=== PATIENT | male | born 1970 | race African-American/Black ===

== ENCOUNTER 2017-06-30 11:18 | Emergency (ER) | payer OTHER ==
--- NOTE | 2017-06-30 11:21 | ER Inpatient Procedure ---
VERONICA BARKER MD June 30, 2017 11:21
--- NOTE | 2017-06-30 11:22 | ER Report ---
History and Physical Time Seen By MD: 11:21 HPI/ROS CHIEF COMPLAINT: Abdominal pain HISTORY OF PRESENT ILLNESS: Patient is a 46-year-old male who is visiting from [facility] for a graduation. He is had to 3 days worth of epigastric abdominal pain similar to prior episodes of gastritis. Reports nausea without vomiting. Pain is fairly intense at 8 out of 10. There is no significant radiation of pain. He denies any fevers or chills. He denies any prior history of abdominal surgery. REVIEW OF SYSTEMS: Constitutional: No fever, no chills. Eyes: No discharge. ENT: No sore throat. Cardiovascular: No chest pain, no palpitations. Respiratory: No cough, no shortness of breath. Gastrointestinal: Abdominal pain mostly epigastric no nausea without vomiting Genitourinary: No hematuria. Musculoskeletal: No back pain. Skin: No rashes. Neurological: No headache. Allergies: Coded Allergies: No Known Drug Allergies (Unverified , 06/30/17) Home Meds Active Scripts Hydrocodone Bit/Acetaminophen (HYDROCODON-ACETAMINOPHEN 5-325) 1 Each Tablet, 1 EACH PO Q4H for PAIN, #9 TAB 0 Refills Prov:VERONICA BARKER MD 06/30/17 Ondansetron Hcl (ZOFRAN) 4 Mg Tablet, 4 MG PO Q8H for Nausea, #12 TAB 0 Refills Prov:VERONICA BARKER MD 06/30/17 Azithromycin (ZITHROMAX) 250 Mg Tablet, 1 TAB PO QDAY, #4 TAB 0 Refills first dose on July 01 Prov:VERONICA BAKRER MD 06/30/17 Reported Medications Sertraline Hcl (ZOLOFT) 50 Mg Tablet, 1 TAB PO QDAY, TAB 06/30/17 Zolpidem Tartrate (AMBIEN) 5 Mg Tablet, 1 TAB PO QHS, TAB 06/30/17 Past Medical/Surgical History Noncontributory towards this chief complaint Constitutional Vital Sign - Last 24 Hours 06/30/17 06/30/17 06/30/17 06/30/17 11:18 11:24 11:24 11:30 Temp 98.8 Pulse ??? 131 Resp 14 B/P (MAP) 162/106 (124) 162/106 160/102 (121) Pulse Ox 93 O2 Delivery Room Air 06/30/17 11:33 Pulse 121 Pulse Ox 97 Intake and Output 06/30/17 06/30/17 07/01/17 15:00 23:00 07:00 Intake Total 1000 ml Balance 1000 ml Physical Exam General Appearance: The patient is alert, has no immediate need for airway protection and no signs of toxicity. Pupils equal and round no pallor or injection. ENT, Mouth: Mucous membranes are moist. Respiratory: There are no retractions, lungs are clear to auscultation. Cardiovascular: Tachycardic with regular rhythm[ ] Gastrointestinal: Epigastric abdominal discomfort without or peritoneal signs Neurological: Awake and alert Skin: Warm and dry, no rashes. Musculoskeletal: Neck is supple non tender. Extremities are nontender, nonswollen and have full range of motion. Medical Decision Making Data Points Result Diagram: 06/30/17 1130 06/30/17 1130 Laboratory Hematology Test 06/30/17 11:30 06/30/17 11:34 Red Blood Count 5.79 M/uL (4.00-5.60) Mean Corpuscular Volume 83.5 fL (80.0-96.0) Mean Corpuscular Hemoglobin 28.8 pg (26.0-33.0) Mean Corpuscular Hemoglobin Concent 34.5 g/dL (32.0-36.0) Red Cell Distribution Width 14.1 % (11.5-14.5) Mean Platelet Volume 9.0 fL (7.2-11.1) Neutrophils (%) (Auto) 77.2 % (39.4-72.5) Lymphocytes (%) (Auto) 13.2 % (17.6-49.6) Monocytes (%) (Auto) 7.7 % (4.1-12.4) Eosinophils (%) (Auto) 0.4 % (0.4-6.7) Basophils (%) (Auto) 1.5 % (0.3-1.4) Nucleated RBC Relative Count (auto) 0.1 /100WBC Neutrophils # (Auto) 11.0 K/uL (2.0-7.4) Lymphocytes # (Auto) 1.9 K/uL (1.3-3.6) Monocytes # (Auto) 1.1 K/uL (0.3-1.0) Eosinophils # (Auto) 0.1 K/uL (0.0-0.5) Basophils # (Auto) 0.2 K/uL (0.0-0.1) Nucleated RBC Absolute Count (auto) 0.01 K/uL Sodium Level 142 mmol/L (137-145) Potassium Level 3.4 mmol/L (3.5-5.0) Chloride Level 97 mmol/L (98-107) Carbon Dioxide Level 31 mmol/L (22-30) Blood Urea Nitrogen 13 mg/dl (9-21) Creatinine 1.20 mg/dl (0.66-1.25) Glomerular Filtration Rate Calc > 60.0 Random Glucose 154 mg/dl (75-110) Calcium Level 10.4 mg/dl (8.4-10.2) Total Bilirubin 1.3 mg/dl (0.2-1.3) Aspartate Amino Transf (AST/SGOT) 40 U/L (0-35) Alanine Aminotransferase (ALT/SGPT) 23 U/L (0-56) Alkaline Phosphatase 83 U/L (0-126) Total Protein 8.7 gm/dl (6.3-8.2) Albumin 4.6 g/dl (3.5-5.0) Lipase 104 U/L (23-300) Urine Color Yellow Urine Clarity Clear Urine pH 6.0 pH (4.8-9.5) Urine Specific [place] 1.012 Urine Protein Negative mg/dL (NEGATIVE) Urine Glucose (UA) Negative mg/dL (NEGATIVE) Urine Ketones Negative mg/dL (NEGATIVE) Urine Blood Negative (NEGATIVE) Urine Nitrite Negative (NEGATIVE) Urine Bilirubin Negative (NEGATIVE) Urine Urobilinogen Negative mg/dL (0.2-1.9) Urine Leukocyte Esterase Negative (NEGATIVE) Urine RBC 1 /HPF (0-2/HPF) Urine WBC <1 /HPF (0-5/HPF) Urine Squamous Epithelial Cells None /LPF (</=FEW) Urine Bacteria Negative /HPF (NONE-FEW) Urine Mucus None /HPF (NONE-FEW) Chemistry Test 06/30/17 11:30 06/30/17 11:34 White Blood Count 14.2 k/uL (4.5-11.0) Red Blood Count 5.79 M/uL (4.00-5.60) Hemoglobin 16.7 g/dL (14.0-18.0) Hematocrit 48.4 % (42.0-52.0) Mean Corpuscular Volume 83.5 fL (80.0-96.0) Mean Corpuscular Hemoglobin 28.8 pg (26.0-33.0) Mean Corpuscular Hemoglobin Concent 34.5 g/dL (32.0-36.0) Red Cell Distribution Width 14.1 % (11.5-14.5) Platelet Count 196 K/uL (150-450) Mean Platelet Volume 9.0 fL (7.2-11.1) Neutrophils (%) (Auto) 77.2 % (39.4-72.5) Lymphocytes (%) (Auto) 13.2 % (17.6-49.6) Monocytes (%) (Auto) 7.7 % (4.1-12.4) Eosinophils (%) (Auto) 0.4 % (0.4-6.7) Basophils (%) (Auto) 1.5 % (0.3-1.4) Nucleated RBC Relative Count (auto) 0.1 /100WBC Neutrophils # (Auto) 11.0 K/uL (2.0-7.4) Lymphocytes # (Auto) 1.9 K/uL (1.3-3.6) Monocytes # (Auto) 1.1 K/uL (0.3-1.0) Eosinophils # (Auto) 0.1 K/uL (0.0-0.5) Basophils # (Auto) 0.2 K/uL (0.0-0.1) Nucleated RBC Absolute Count (auto) 0.01 K/uL Glomerular Filtration Rate Calc > 60.0 Calcium Level 10.4 mg/dl (8.4-10.2) Total Bilirubin 1.3 mg/dl (0.2-1.3) Aspartate Amino Transf (AST/SGOT) 40 U/L (0-35) Alanine Aminotransferase (ALT/SGPT) 23 U/L (0-56) Alkaline Phosphatase 83 U/L (0-126) Total Protein 8.7 gm/dl (6.3-8.2) Albumin 4.6 g/dl (3.5-5.0) Lipase 104 U/L (23-300) Urine Color Yellow Urine Clarity Clear Urine pH 6.0 pH (4.8-9.5) Urine Specific [place] 1.012 Urine Protein Negative mg/dL (NEGATIVE) Urine Glucose (UA) Negative mg/dL (NEGATIVE) Urine Ketones Negative mg/dL (NEGATIVE) Urine Blood Negative (NEGATIVE) Urine Nitrite Negative (NEGATIVE) Urine Bilirubin Negative (NEGATIVE) Urine Urobilinogen Negative mg/dL (0.2-1.9) Urine Leukocyte Esterase Negative (NEGATIVE) Urine RBC 1 /HPF (0-2/HPF) Urine WBC <1 /HPF (0-5/HPF) Urine Squamous Epithelial Cells None /LPF (</=FEW) Urine Bacteria Negative /HPF (NONE-FEW) Urine Mucus None /HPF (NONE-FEW) Urinalysis Test 06/30/17 11:34 Urine Color Yellow Urine Clarity Clear Urine pH 6.0 pH (4.8-9.5) Urine Specific [place] 1.012 Urine Protein Negative mg/dL (NEGATIVE) Urine Glucose (UA) Negative mg/dL (NEGATIVE) Urine Ketones Negative mg/dL (NEGATIVE) Urine Blood Negative (NEGATIVE) Urine Nitrite Negative (NEGATIVE) Urine Bilirubin Negative (NEGATIVE) Urine Urobilinogen Negative mg/dL (0.2-1.9) Urine Leukocyte Esterase Negative (NEGATIVE) Urine RBC 1 /HPF (0-2/HPF) Urine WBC <1 /HPF (0-5/HPF) Urine Squamous Epithelial Cells None /LPF (</=FEW) Urine Bacteria Negative /HPF (NONE-FEW) Urine Mucus None /HPF (NONE-FEW) ED Course/Re-evaluation ED Course CT scan of the abdomen and pelvis shows acute no acute abdominal injury or pathology. There is a left-sided pleural effusion which could be consistent with a infiltrate. Plan at this time will be IV antibiotics as well as oral into biotic as an outpatient. Decision to Disposition Date: June 30, 2017 Decision to Disposition Time: 13:30 Depart Departure Latest Vital Signs Vital Signs Date Time Temp Pulse Resp B/P (MAP) Pulse Ox O2 Delivery O2 Flow Rate FiO2 06/30/17 11:33 121 97 06/30/17 11:30 160/102 (121) 06/30/17 11:24 98.8 14 Room Air Impression: Primary Impression: Left lower lobe pneumonia Condition: Improved Disposition: HOME OR SELF-CARE New Scripts Hydrocodone Bit/Acetaminophen (HYDROCODON-ACETAMINOPHEN 5-325) 1 Each Tablet 1 EACH PO Q4H for PAIN, #9 TAB 0 Refills Prov: VERONICA BARKER MD 06/30/17 Ondansetron Hcl (ZOFRAN) 4 Mg Tablet 4 MG PO Q8H for Nausea, #12 TAB 0 Refills Prov: VERONICA BARKER MD 06/30/17 Azithromycin (ZITHROMAX) 250 Mg Tablet 1 TAB PO QDAY, #4 TAB 0 Refills first dose on July 01 Prov: VERONICA BARKER MD 06/30/17 Patient Instructions: Community Acquired Pneumonia (ED) Problem Qualifiers Primary Impression: Left lower lobe pneumonia Pneumonia type: due to unspecified organism Qualified Codes: J18.1 - Lobar pneumonia, unspecified organism VERONICA BARKER MD June 30, 2017 11:22
[2017-06-30] MEDS ORDERED: NS(*) 0.9% 1000 ML BAG 1,000 ML IV ONE (11:26)
[2017-06-30] MEDS ORDERED: SERT-1 PO (11:29)
[2017-06-30] MEDS ORDERED: ZOLP-1 PO (11:29)
[2017-06-30 11:45] LABS: PLATELET COUNT, AUTOMATED 196 K/uL (150-450)
[2017-06-30] MEDS ORDERED: IOPAMIDOL 76% 75 ML INFUS BTL 75 ML ONE (12:12)
[2017-06-30] MEDS ORDERED: ONDANSETRON 4 MG/2 ML VIAL IVP ONE (12:35)
[2017-06-30] MEDS ORDERED: MORPHINE 4 MG/ML SDV IVP ONE (12:35)
--- NOTE | 2017-06-30 12:51 | RADIOLOGY IMAGING REPORT ---
FACILITY: [facility] PATIENT NAME: Tiana Mckinney : 1970 MR: [id number] V: [id number] EXAM DATE: ORDERING PHYSICIAN: VERONICA BARKER TECHNOLOGIST: Location: Patient: Tiana Mckinney : 1970 Visit/Account:[id number] Date of Sevice: 06/30/2017 EXAMINATION: CT abdomen with IV contrast CT pelvis with IV contrast HISTORY: Pain in middle of abdomen. COMPARISON: None. TECHNIQUE: Axial images were taken through the abdomen and pelvis with intravenous contrast. Sagitt al and coronal reformatted images are also submitted. CONTRAST: 75 mL of IV [id number] One of the following dose optimization techniques was utilized in the performance of this exam: Autom ated exposure control; adjustment of the mA and/or kV according to the patient's size; or use of an i terative reconstruction technique. Specific details can be referenced in the facility's radiology C T exam operational policy. FINDINGS: Liver/biliary: Negative. Pancreas: Negative. Spleen: Negative. Adrenal glands: Negative. Kidneys: Negative. Pelvic structures: Negative. Bowel: The bowel is normal caliber without obvious focal wall thickening. The appendix is normal. Peritoneum/retroperitoneum/mesenteries: No intraperitoneal free air or free fluid. Vessels: Negative. Musculoskeletal/body wall: Exostosis of the left iliac bone extending into the overlying gluteus medi us muscle. Lymph node assessment: Negative. Lower chest: Small left pleural effusion and scattered subsegmental atelectasis at the left lung base . Infiltrate in the left lower lobe is not excluded. IMPRESSION: No CT evidence of acute pathology in the abdomen or pelvis. Small left pleural effusion and scattered subsegmental atelectasis at the left lung base. Infiltrate in the left lower lobe is not excluded. Report Dictated By: Jamshid Zarate MD at 06/30/2017 12:34 PM Report E-Signed By: Jamshid Zarate MD at 06/30/2017 12:46 PM [id number]
[2017-06-30] MEDS ORDERED: ONDA4TAB97 PO (12:59)
[2017-06-30] MEDS ORDERED: HYDR-385 PO (12:59)
[2017-06-30] MEDS ORDERED: AZIT-1 PO (12:59)
[2017-06-30] MEDS ORDERED: AZITHROMYCIN 250 MG TAB PO ONE (13:00)
[2017-06-30] MEDS ORDERED: cefTRIAXone 1 GM VIAL IVP ONE (13:00)
[2017-06-30 13:27] VITALS: BP 155/106
== END 2017-06-30 13:40 | disposition home or self-care (01) ==
LOC: ER 11:19
DX: J18.1 Lobar pneumonia, unspecified organism (principal)
CPT/HCPCS: 74177; 81001; 83690; 85025; 96361; 96374; 96375; 99284; J0696; J2270; J2405; J7030; Q0144; Q9967; 82040; 82247; 82310; 82374; 82435; 82565; 82947; 84075; 84132; 84155; 84295; 84450; 84460; 84520